=== PATIENT | female | born 1995 | race African-American/Black ===

== ENCOUNTER 2016-12-18 22:15 | Emergency (ER) | payer MEDICAID ==
[~2016-12-18] VITALS: Ht 175.3 cm; Wt 73.9 kg
[2016-12-18 22:19] VITALS: BP 118/71
[2016-12-18 23:38] LABS: APPEARANCE,URINE CLEAR (CLEAR); BILIRUBIN,URINE NEGATIVE (NEGATIVE); BLOOD, URINE TRACE-INTA Ery/uL (NEGATIVE); COLOR,URINE YELLOW (YELLOW); KETONES,URINE NEGATIVE (NEGATIVE); LEUKOCYTE ESTERASE ,URINE NEGATIVE (NEGATIVE); NITRITE, URINE NEGATIVE (NEGATIVE); PROTEIN,URINE TRACE mg/dl (NEGATIVE); UGLUCOSE NEGATIVE (NEGATIVE)
[2016-12-18 23:45] LABS: PREGNANCY TEST URINE QUAL NEGATIVE (NEGATIVE)
[2016-12-18 23:47] LABS: BACTERIA,URINE None seen /HPF (None Seen); RBC,URINE 0-2 /HPF (0-2); WBC,URINE 0-2 /HPF (0-3)
[2016-12-18 23:48] LABS: MUCUS,URINE Few /LPF (None Seen); SQUAMOUS EPITHELIAL CELL,UR Moderate /HPF (None Seen)
== END 2016-12-19 00:03 | disposition home or self-care (01) ==
LOC: ER 22:17
DX: N89.8 Other specified noninflammatory disorders of vagina (principal)
CPT/HCPCS: 81000-TC; 84703-TC; 87070-TC; 87081-TC; 87110-TC; 87210-TC; A4606; Z7610

== ENCOUNTER 2017-01-19 21:45 | Emergency (ER) | payer MEDICAID ==
[~2017-01-19] VITALS: Ht 175.3 cm; Wt 70.3 kg
[2017-01-19 21:51] VITALS: BP 114/71
[2017-01-19 22:36] LABS: BILIRUBIN,URINE NEGATIVE (NEGATIVE); BLOOD, URINE TRACE Ery/uL (NEGATIVE); COLOR,URINE YELLOW (YELLOW); KETONES,URINE TRACE (NEGATIVE); LEUKOCYTE ESTERASE ,URINE TRACE (NEGATIVE); NITRITE, URINE NEGATIVE (NEGATIVE); PH,URINE 6.5 (5.0-8.0); PROTEIN,URINE 1+ mg/dl (NEGATIVE); UGLUCOSE NEGATIVE (NEGATIVE)
[2017-01-19 22:45] LABS: APPEARANCE,URINE SLIGHTLY CLOUDY (CLEAR)
[2017-01-19 22:47] LABS: PREGNANCY TEST URINE QUAL NEGATIVE (NEGATIVE)
[2017-01-19 23:01] LABS: BACTERIA,URINE 2+ /HPF (None Seen); MUCUS,URINE Few /LPF (None Seen); RBC,URINE 0-5 /HPF (0-2); SQUAMOUS EPITHELIAL CELL,UR Many /HPF (None Seen)
[2017-01-19] MEDS ORDERED: CEFTRIAXONE 500 MG VIAL IM ONE (23:30)
[2017-01-19] MEDS ORDERED: AZITHROMYCIN 250 MG TABLET PO ONE (23:30)
[2017-01-19] MEDS ORDERED: AZITHROMYCIN 250 MG TABLET ONE (23:41)
[2017-01-19] MEDS ORDERED: CEFTRIAXONE 500 MG VIAL ONE (23:41)
[2017-01-19] MEDS ORDERED: LIDOCAINE /MPF 1% VIAL 5 ML VIAL ONE (23:41)
== END 2017-01-19 23:49 | disposition home or self-care (01) ==
LOC: ER 21:48
DX: J02.0 Streptococcal pharyngitis (principal); A64 Unspecified sexually transmitted disease
CPT/HCPCS: 81000-TC; 84703-TC; 87070-TC; 87081-TC; 87086-TC; 87110-TC; 87210-TC; A4606; J0696; J3490; Z7610

== ENCOUNTER 2024-08-25 13:00 | Emergency (ER) | payer OTHER ==
[~2024-08-25] VITALS: Ht 172.7 cm; Wt 77.1 kg
[2024-08-25 13:00] VITALS: BP 100/65; TEMP 98.5; O2SAT 99
[2024-08-25] MEDS ORDERED: PSEU120T99 PO (17:21)
[2024-08-25] MEDS ORDERED: BENZ-13 PO (17:21)
== END 2024-08-25 18:13 | disposition home or self-care (01) ==
LOC: ER 13:15
DX: J06.9 Acute upper respiratory infection, unspecified (principal); M54.2 Cervicalgia; R07.9 Chest pain, unspecified; Z20.822 Contact with and (suspected) exposure to COVID-19
CPT/HCPCS: 71045-TC